=== PATIENT | female | born 1995 | race African-American/Black ===

== ENCOUNTER 2018-09-11 10:49 | Day surgery (SDC) | payer OTHER ==
[~2018-09-11 10:49] MED LIST: AMPICILLIN SODIUM 2 GM in NORMAL SALINE 100 ML IV PRN; LIDOCAINE 2%/EPINEPHRINE INJ 1.7 ML CARTRIDGE ONE
[2018-09-11] MEDS ORDERED: DEXAMETHASONE SOD PHOS INJ 10 MG/1 ML VIAL ONE (12:05)
[2018-09-11] MEDS ORDERED: MIDAZOLAM 2 MG/2 ML INJ ONE (12:05)
[2018-09-11] MEDS ORDERED: HYDROMORPHONE HCL INJ/PF 2 MG/ML AMPULE ONE (12:05)
[2018-09-11] MEDS ORDERED: PROPOFOL INJ 200 MG/20 ML VIAL IV ONE (12:06)
[2018-09-11] MEDS ORDERED: CHLORHEXIDINE GLUCONATE 0.12% ORAL RINSE 15 ML UDC ONE (12:13)
[2018-09-11] MEDS ORDERED: BUPIVACAINE HCL 0.5%/EPI 1:200000 INJ 1.8 ML CARTRIDGE ONE (12:24)
--- NOTE | 2018-09-11 13:09 | [facility] OPERATIVE REPORT E ---
[facility] Operative Report NAME: JEFFERSON HOWARD AGE: 22Y DATE OF SURGERY: 09/11/2018 ROOM: HISTORY: This 22-year-old male with a history of a tongue mass presents today for excision of that tongue neoplasm. Informed consent was obtained from the patient. PREOPERATIVE DIAGNOSIS: Dorsum of tongue neoplasm. POSTOPERATIVE DIAGNOSIS: Dorsum of tongue neoplasm. OPERATION: Excision, dorsal tongue neoplasm. SURGEON: AUGIE CRISTINA MD ANESTHESIA: MAC. DESCRIPTION OF PROCEDURE: After receiving informed consent from the patient, she was taken to the operating room and placed supine on the operating table. After successful induction with IV medication, a bite block was placed and the tongue was extended. The mass was identified. It was then infiltrated with 2% Xylocaine with 1:100,000 epinephrine and 0.5% Marcaine with 1:200,000 epinephrine. The patient was then prepped and draped in sterile fashion. Again, the tongue was extended and using Bovie electrocautery the mass was excised. Hemostasis was obtained with Bovie electrocautery. The wound was then closed using 4-0 chromic. The patient tolerated the procedure well. The patient was then given back to Anesthesia who successfully awoke the patient from the anesthetic. She was then transferred to the postanesthesia care unit in stable condition, spontaneous respirations, no complications. DICTATING PHYSICIAN: AUGIE CRISTINA M.D. [id number] PHY#: [id number] ID: [id number] JOB#: [id number] ACCT: [id number] cc:AUGIE CRISTINA MD >
== END 2018-09-11 13:52 | disposition home or self-care (01) ==
LOC: SC 10:49
PROVIDERS: ATTEND Otolaryngology
DX: D10.1 Benign neoplasm of tongue (principal)
CPT/HCPCS: 88305 ×2; 41110; J0290; J2250; J3490 ×2; J1170; J7050; J2704; J1100; 170